=== PATIENT | male | born 1995 | race Two or more races ===

== ENCOUNTER 2017-11-13 00:10 | Emergency (ER) | payer SELFPAY ==
[~2017-11-13] VITALS: Ht 177.8 cm; Wt 65.8 kg
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
--- NOTE | 2017-11-13 01:17 | NUR ---
Patient discharged to home in stable condition. Written and verbal after care instructions given. Patient verbalizes understanding of instruction. AMBULATED WITH STEADY GAIT. 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
[2017-11-13 01:19] VITALS: BP 120/76
== END 2017-11-13 01:19 | disposition home or self-care (01) ==
LOC: ER 00:11
DX: S00.31XA Abrasion of nose, initial encounter (principal); F10.10 Alcohol abuse, uncomplicated; V49.59XA Passenger injured in collision with other motor vehicles in traffic accident, initial encounter; Y93.89 Activity, other specified; Y92.413 State road as the place of occurrence of the external cause; Y99.8 Other external cause status; Y90.9 Presence of alcohol in blood, level not specified
CPT/HCPCS: 99283; A4606; Z7610